=== PATIENT | male | born 1960 | race Caucasian/White ===

== ENCOUNTER 2016-10-28 11:34 | Observation (INO) | payer OTHER ==
[~2016-10-28] VITALS: Ht 170.2 cm; Wt 62.1 kg
[~2016-10-28 11:34] MED LIST: ACETAMINOPHEN650 M1 PO; ASPIRIN EC81 MG PO; BRILINTA90 MG PO; CRESTOR 10 MG T10 MG PO; METOPROLOL TART25 MG PO; NITROSTAT 0.40.4 MG SL; NO HOME MEDS
[2016-10-28 13:17] LABS: HEMOGLOBIN 13.8 gm/dl (14.0-17.5); RED BLOOD COUNT 4.43 M/UL (4.20-5.50); WHITE BLOOD COUNT 5.7 K/UL (4.5-11.0)
[2016-10-28 13:35] LABS: BUN/CREATININE RATIO 11 (0-10)
== END 2016-10-29 15:30 | disposition home or self-care (01) ==
LOC: ER1 11:34 → ZEROF 15:30 → ER1 20:10 → MED SURG 4 20:34 → ZEROF 20:34 → MED SURG 4 20:34
PROVIDERS: Physician Assistant; ADMIT Internal Medicine Infectious Disease
DX: R07.89 Other chest pain (principal); I25.10 Atherosclerotic heart disease of native coronary artery without angina pectoris; R00.1 Bradycardia, unspecified; I25.2 Old myocardial infarction; I10 Essential (primary) hypertension; G89.29 Other chronic pain; M54.9 Dorsalgia, unspecified; Z87.891 Personal history of nicotine dependence; Z82.49 Family history of ischemic heart disease and other diseases of the circulatory system; Z79.82 Long term (current) use of aspirin; Z79.899 Other long term (current) drug therapy
CPT/HCPCS: ECHO; 36415; 71010; 80053; 80061; 82550; 82553; 83874; 84484; 85025; 93005; 93306; 99285; G0378

== ENCOUNTER → 2016-12-29 | Outpatient (CLI) | payer OTHER | LOC: HEART 5 12-11 07:30 | DX: I21.19 ST elevation (STEMI) myocardial infarction involving other coronary artery of inferior wall (principal) | CPT/HCPCS: 78452; A9502 ==